=== PATIENT | male | born 2000 | race Caucasian/White ===

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

== ENCOUNTER 2021-04-28 12:21 | Emergency (ER) | payer MEDICAID ==
[~2021-04-28] VITALS: Ht 167.6 cm; Wt 83.2 kg
[~2021-04-28 12:21] MED LIST changes: +AMOXICILLIN 50500 MG PO
[2021-04-28 13:04] VITALS: BP 119/70; PULSE 83
[2021-04-28] MEDS ORDERED: VALTREX1 GM PO (14:09)
== END 2021-04-28 14:27 | disposition home or self-care (01) ==
LOC: COL.ER 12:21
DX: K13.70 Unspecified lesions of oral mucosa (principal)

== ENCOUNTER 2021-09-30 11:38 | Emergency (ER) | payer MEDICARE, MEDICAID ==
[~2021-09-30] VITALS: Ht 177.8 cm; Wt 79.5 kg
[~2021-09-30 11:38] MED LIST changes: +VALTREX1 GM PO
[2021-09-30 11:44] VITALS: TEMP 97.9
[2021-09-30 12:09] LABS: BASO % 0.3 % (0.0-2.0); EOS # 0.1 K/mm3 (0.0-0.7); EOS % 1.1 % (0.0-4.0); GRAN # 4.5 K/mm3 (1.4-6.5); GRAN % 50.5 % (42.2-75.2); HEMOGLOBIN 17.5 g/dl (12.5-16.1); LYMPH # 3.7 K/mm3 (1.2-3.4); LYMPH % 41.5 % (20.0-51.0); MEAN CELL VOLUME 85 fl (80.0-95.0); MEAN CORPUSCULAR HEMOGLOBIN 29 pg (26-32); MEAN CORPUSCULAR HGB CONC 34 g/dl (33.0-37.0); MEAN PLATELET VOLUME 10.6 fl (7.4-10.4); MONO # 0.5 K/mm3 (0.1-0.6); MONO % 5.9 % (1.7-9.3); PLATELET COUNT 355 K/mm3 (130-400); RED BLOOD COUNT 5.97 M/mm3 (4.20-5.60); REDCELL DISTRIBUTION WIDTH-CV 12.5 % (11.5-14.5)
[2021-09-30] MEDS ORDERED: PROTONIX20 MG PO (12:16)
[2021-09-30 12:27] LABS: ALBUMIN 4.7 gm/dL (3.5-5.0); BILIRUBIN,TOTAL 0.8 mg/dL (0.2-1.2); CALCIUM 9.1 mg/dL (8.4-10.2); CREATININE, serum 1.31 mg/dL (0.72-1.25); POTASSIUM 3.7 mmol/L (3.5-4.5); TOTAL PROTEIN 8.4 gm/dL (6.2-8.1)
[2021-09-30] MEDS ORDERED: KEPPRA 500MG500 MG PO (13:41)
[2021-09-30 14:36] VITALS: BP 125/79; PULSE 87
[2021-09-30 14:49] LABS: COLLECTION METHOD CLEAN CATCH
[2021-09-30 14:54] LABS: MUCOUS Present (NOT PRESENT); PH 5 (5-8); SQUAMOUS EPITHELIAL None Seen /hpf (0-10); URINE APPEARANCE Clear (CLEAR/HAZY); URINE BACTERIA None Seen /hpf (NONE SEEN); URINE BILIRUBIN Negative (NEGATIVE); URINE BLOOD 1+ (NEGATIVE); URINE COLOR Yellow (YELLOW); URINE GLUCOSE Negative (NEGATIVE); URINE KETONE Negative (NEGATIVE); URINE LEUKOCYTE ESTERASE Negative (NEGATIVE); URINE NITRATE Negative (NEGATIVE); URINE PROTEIN(semi-quant) 1+ (NEGATIVE); URINE RBC 0-2 /hpf (0-2); URINE UROBILINOGEN Negative (NEGATIVE)
[2021-09-30 15:02] LABS: TRICYCLIC ANTIDEPRESS URINE NEGATIVE
== END 2021-09-30 14:43 | disposition home or self-care (01) ==
LOC: COL.ER → EDBD 11:38 → COL.ER 14:43
PROVIDERS: Physician Assistant
DX: R56.9 Unspecified convulsions (principal); R62.50 Unspecified lack of expected normal physiological development in childhood; Z20.822 Contact with and (suspected) exposure to COVID-19; Z28.310 Unvaccinated for COVID-19
CPT/HCPCS: J1953; J7030

== ENCOUNTER 2021-11-14 09:24 | Emergency (ER) | payer MEDICARE, MEDICAID ==
[~2021-11-14] VITALS: Ht 175.3 cm; Wt 81.8 kg
[~2021-11-14 09:24] MED LIST changes: +KEPPRA 500MG500 MG PO; +PROTONIX20 MG PO
[2021-11-14 10:17] LABS: BASO % 0.1 % (0.0-2.0); EOS % 0.3 % (0.0-4.0); GRAN # 8.9 K/mm3 (1.4-6.5); GRAN % 85.6 % (42.2-75.2); HEMATOCRIT 45.2 % (36.0-47.0); HEMOGLOBIN 16.3 g/dl (12.5-16.1); LYMPH # 0.8 K/mm3 (1.2-3.4); LYMPH % 7.2 % (20.0-51.0); MEAN CELL VOLUME 85 fl (80.0-95.0); MEAN CORPUSCULAR HEMOGLOBIN 31 pg (26-32); MEAN CORPUSCULAR HGB CONC 36 g/dl (33.0-37.0); MEAN PLATELET VOLUME 11.2 fl (7.4-10.4); MONO # 0.7 K/mm3 (0.1-0.6); MONO % 6.4 % (1.7-9.3); PLATELET COUNT 230 K/mm3 (130-400); RED BLOOD COUNT 5.34 M/mm3 (4.20-5.60); REDCELL DISTRIBUTION WIDTH-CV 12.5 % (11.5-14.5)
[2021-11-14 10:30] LABS: ALBUMIN 4.5 gm/dL (3.5-5.0); CALCIUM 9.6 mg/dL (8.4-10.2); CREATININE, serum 1.41 mg/dL (0.72-1.25); PHOSPHOROUS 2.3 mg/dL (2.3-4.7); POTASSIUM 4.5 mmol/L (3.5-4.5)
[2021-11-14 10:51] LABS: PROLACTIN 12.5 ng/mL (3.46-19.40)
[2021-11-14 12:45] VITALS: BP 116/74; PULSE 85; TEMP 98.3
== END 2021-11-14 12:45 | disposition home or self-care (01) ==
LOC: COL.ER 09:24
PROVIDERS: Emergency Medicine
DX: R56.9 Unspecified convulsions (principal); N28.9 Disorder of kidney and ureter, unspecified; Z28.310 Unvaccinated for COVID-19
CPT/HCPCS: J1953

== ENCOUNTER 2022-01-15 13:29 | Emergency (ER) | payer MEDICARE, MEDICAID ==
[~2022-01-15] VITALS: Ht 170.2 cm; Wt 84.0 kg
[2022-01-15 13:58] VITALS: TEMP 98.4
[2022-01-15] MEDS ORDERED: FLEXERIL 1010 MG/TAB PO (16:47)
[2022-01-15 16:50] VITALS: BP 129/78; PULSE 67
== END 2022-01-15 16:55 | disposition home or self-care (01) ==
LOC: COL.ER 13:29
DX: S20.212A Contusion of left front wall of thorax, initial encounter (principal); Z28.310 Unvaccinated for COVID-19; W18.2XXA Fall in (into) shower or empty bathtub, initial encounter
CPT/HCPCS: J1885

== ENCOUNTER 2023-09-23 17:04 | Emergency (ER) | payer MEDICARE ==
[~2023-09-23] VITALS: Wt 68.2 kg
[~2023-09-23 17:04] MED LIST changes: +FLEXERIL 1010 MG/TAB PO; +NORCO 325 MG-51 TAB PO
[2023-09-23 17:05] VITALS: TEMP 98.8
[2023-09-23] MEDS ORDERED: levETIRAcetam 100 ML IV ONE (17:30)
[2023-09-23] MEDS ORDERED: Ondansetron 4 MG/2 ML VIAL IV ONE (17:30)
[2023-09-23] MEDS ORDERED: NS 1,000 ML IV ONE ×2 (17:30)
[2023-09-23] MEDS ORDERED: levETIRAcetam 500 MG/100 ML IVPB IV SCH (17:45)
[2023-09-23] MEDS ORDERED: Acetaminophen 500 MG TAB PO ONE (18:30)
[2023-09-23 18:44] LABS: BASO % 0.3 % (0.0-2.0); EOS % 0.1 % (0.0-4.0); GRAN # 6.5 K/mm3 (1.4-6.5); GRAN % 84.6 % (42.2-75.2); LYMPH # 0.3 K/mm3 (1.2-3.4); LYMPH % 3.7 % (20.0-51.0); MEAN CELL VOLUME 84 fl (80.0-100.0); MEAN CORPUSCULAR HEMOGLOBIN 31 pg (27-31); MEAN CORPUSCULAR HGB CONC 37 g/dl (33.0-37.0); MEAN PLATELET VOLUME 11.2 fl (7.4-10.4); MONO # 0.8 K/mm3 (0.1-0.6); PLATELET COUNT 162 K/mm3 (130-400); RED BLOOD COUNT 4.86 M/mm3 (4.20-5.60)
[2023-09-23 18:49] LABS: BILIRUBIN,TOTAL 0.4 mg/dL (0.2-1.2); CREATININE, serum 1.13 mg/dL (0.72-1.25); POTASSIUM 4.3 mEq/L (3.5-4.5); TOTAL PROTEIN 6.7 g/dl (6.2-8.1)
[2023-09-23 19:09] LABS: PROLACTIN 13.9 ng/mL (3.46-19.40)
[2023-09-23] MEDS ORDERED: Home Ondansetron ODT 4 MG #2 ODT/PACK PO ONE (20:00)
[2023-09-23 20:06] VITALS: BP 105/48; PULSE 80
== END 2023-09-23 20:07 | disposition home or self-care (01) ==
LOC: COL.ER 17:04
PROVIDERS: Nurse Practitioner
DX: G40.909 Epilepsy, unspecified, not intractable, without status epilepticus (principal); R11.2 Nausea with vomiting, unspecified; Z79.899 Other long term (current) drug therapy
CPT/HCPCS: J1953; J2405; J7030

== ENCOUNTER 2024-01-05 12:31 | Emergency (ER) | payer MEDICARE, MEDICAID ==
[~2024-01-05] VITALS: Ht 180.3 cm; Wt 71.7 kg
[2024-01-05 12:33] VITALS: TEMP 97.6
[2024-01-05] MEDS ORDERED: levETIRAcetam 1,000 MG in Syringe 1 EACH IV ONE (12:45)
[2024-01-05] MEDS ORDERED: NS 1,000 ML IV ONE ×2 (12:45→14:15)
[2024-01-05 12:55] LABS: BASO % 0.4 % (0.0-2.0); EOS # 0.1 K/mm3 (0.0-0.7); EOS % 0.7 % (0.0-4.0); GRAN # 6.5 K/mm3 (1.4-6.5); GRAN % 59.9 % (42.2-75.2); HEMATOCRIT 50.5 % (42.0-52.0); HEMOGLOBIN 17.5 g/dl (13.5-18.0); LYMPH # 3.5 K/mm3 (1.2-3.4); LYMPH % 32.1 % (20.0-51.0); MEAN CELL VOLUME 88 fl (80.0-100.0); MEAN CORPUSCULAR HEMOGLOBIN 30 pg (27-31); MEAN CORPUSCULAR HGB CONC 35 g/dl (33.0-37.0); MEAN PLATELET VOLUME 11.5 fl (7.4-10.4); MONO # 0.7 K/mm3 (0.1-0.6); MONO % 6.5 % (1.7-9.3); PLATELET COUNT 292 K/mm3 (130-400); RED BLOOD COUNT 5.76 M/mm3 (4.20-5.60); REDCELL DISTRIBUTION WIDTH-CV 12.2 % (11.5-14.5)
[2024-01-05 13:13] LABS: ALBUMIN 4.9 g/dL (3.5-5.0); BILIRUBIN,TOTAL 0.7 mg/dL (0.2-1.2); CALCIUM 9.7 mg/dL (8.4-10.2); CREATININE, serum 1.28 mg/dL (0.72-1.25); POTASSIUM 3.5 mEq/L (3.5-4.5); TOTAL PROTEIN 8.2 g/dl (6.2-8.1)
[2024-01-05] MEDS ORDERED: Ketorolac 15 MG/ML VIAL IV ONE (13:15)
[2024-01-05 13:32] LABS: PROLACTIN 26.7 ng/mL (3.46-19.40)
[2024-01-05 14:40] LABS: COLLECTION METHOD CLEAN CATCH
[2024-01-05 14:49] LABS: URINE APPEARANCE CLEAR (CLEAR/HAZY); URINE BLOOD 1+ (NEGATIVE); URINE COLOR YELLOW (YELLOW); URINE GLUCOSE NEGATIVE (NEGATIVE); URINE KETONE NEGATIVE (NEGATIVE); URINE NITRATE NEGATIVE (NEGATIVE); URINE PROTEIN(semi-quant) 2+ (NEGATIVE); URINE UROBILINOGEN 0.2 E.U/dL (0.2-1.0)
[2024-01-05 14:58] LABS: TRICYCLIC ANTIDEPRESS URINE NEGATIVE (NEGATIVE)
[2024-01-05 16:10] VITALS: BP 121/72; PULSE 58
== END 2024-01-05 16:12 | disposition home or self-care (01) ==
LOC: COL.ER 12:31
PROVIDERS: Physician Assistant
DX: G40.909 Epilepsy, unspecified, not intractable, without status epilepticus (principal); Z79.899 Other long term (current) drug therapy
CPT/HCPCS: J1885; J1953; J7030